=== PATIENT | male | born 2000 | race Caucasian/White ===

== ENCOUNTER 2021-06-25 14:56 | Emergency (ER) | payer BC ==
[~2021-06-25] VITALS: Ht 188 cm; Wt 97.7 kg
[2021-06-25 15:07] VITALS: BP 155/63; PULSE 88; TEMP 97.9
== END 2021-06-25 15:40 | disposition home or self-care (01) ==
LOC: COL.ER 14:56
DX: S91.202A Unspecified open wound of left great toe with damage to nail, initial encounter (principal); W22.8XXA Striking against or struck by other objects, initial encounter